=== PATIENT | female | born 1960 | race Caucasian/White ===

== ENCOUNTER 2020-10-26 11:20 | Emergency (ER) | payer OTHER, SELFPAY ==
[2020-10-26] VITALS (13 sets, daily range): BP systolic 109–136; BP diastolic 59–104; PULSE 66–91; RESP 15–25; TEMP 36.5; O2SAT 94–100; BMI 34.0
[2020-10-26 11:47] LABS: Add Manual Diff / Slide Review NO; Basophils Absolute Auto 0 /uL (0-100); Basophils Percent Auto 0.7 % (0-2); Eosinophils Absolute Auto 200 /uL (0-450); Eosinophils Percent Auto 3.1 % (2-4); Hematocrit 42.6 % (36-46); Hemoglobin 14.1 g/dL (12.0-16.0); Lymphocytes Absolute Auto 1000 /uL (1100-4500); Mean Corpuscular HGB Conc 33.1 % (30-36); Mean Corpuscular Hemoglobin 29.4 PG (26-34); Mean Corpuscular Volume 88.9 fL (80-100); Monocytes Absolute Auto 400 /uL (0-900); Monocytes Percent Auto 7.3 % (3-14); Neutrophils Absolute Auto 4500 /uL (1500-7000); Neutrophils Percent Auto 72.9 % (50-75); Platelet Count 192 X10^3/uL (150-400); Red Blood Cell Count 4.79 X10^6/uL (4.0-5.2); White Blood Cell Count 6.1 X10^3/uL (4.5-11.0)
[2020-10-26 11:54] LABS: INR 1.1 (0.9-1.3); Prothrombin Time 11.8 SECONDS (10.1-12.7)
[2020-10-26 11:56] LABS: PTT Partial Thromboplastin Tim 29 SECONDS (26.4-36.2)
[2020-10-26 11:57] LABS: Alanine Aminotransferase 22 IU/L (<35); Albumin 4.2 g/dL (3.5-5.0); Albumin Globulin Ratio 1.5 (1.0-2.8); Alkaline Phosphatase 106 U/L (38-126); Aspartate Aminotransferase 36 IU/L (14-36); BUN Creatinine Ratio 40.4 (6-22); Bilirubin Total 0.5 mg/dL (0.2-1.3); Blood Urea Nitrogen 21 mg/dL (7-17); Calcium 9.3 mg/dL (8.4-10.2); Carbon Dioxide 30 mmol/L (22-32); Chloride 101 mmol/L (98-107); Estimated Glomerular Filt Rate > 60.0 mL/min (>60); Globulin 2.8 g/dL (1.7-4.1); Glucose 133 mg/dL (80-110); HEMOLYSIS < 15 (0-50); Lipase 120 U/L (23-300); Potassium 3.6 mmol/L (3.4-5.1); Sodium 138 mmol/L (137-145)
[2020-10-26 12:07] LABS: COVID19 -Nasal RAPID Negative (Negative)
--- NOTE | 2020-10-26 12:12 | ED.GENADULT ---
HPI - General Adult General Chief complaint: Abdominal Pain Stated complaint: Syncope/Abd pain Time Seen by Provider: 10/26/20 11:24 Source: patient Mode of arrival: EMS Limitations: no limitations History of Present Illness HPI narrative: 60-year-old female who was brought to the emergency department by EMS after having an episode this morning. States that she went to bed last night at her normal state health and feeling very well. States she woke up this morning very well rested. Walked downstairs had a local bed and breakfast to he with some friends. He was during breakfast that she stated that she started to not feel very well. She started to get very hot. States the next thing that she remembers she was on the ground with someone over top of her asking how she was doing and another individual in the phone with EMS. She did have a episode of urinary incontinence during this time. She also had multiple episodes of vomiting EN route here to the emergency department. At the time my evaluation she reports she was feeling better. Prior to passing out she denied any headache. No chest pain. No shortness of breath. No rapid heart rate. Do not feel nauseous prior to the event. She is on ?HCTZ ?for a eustachian tube dysfunction issue although she was not feeling any signs of vertigo prior to the event today. Related Data Allergies Allergy/AdvReac Type Severity Reaction Status Date / Time ciprofloxacin Allergy Verified 10/26/20 12:13 clarithromycin [From Biaxin] Allergy Verified 10/26/20 12:13 clindamycin Allergy Verified 10/26/20 12:13 doxycycline Allergy Verified 10/26/20 12:13 Iodinated Contrast Media Allergy Verified 10/26/20 12:13 Penicillins Allergy Verified 10/26/20 12:13 Sulfa (Sulfonamide Allergy Verified 10/26/20 12:13 Antibiotics) Review of Systems Constitutional Constitutional: Denies fever(s) and Denies headache(s) Eyes Eyes: Reports system reviewed and no additional complaints, except as documented ENT Ears, Nose, Mouth, and Throat: Reports system reviewed and no additional complaints, except as documented, Reports vertigo, Reports dizziness and Denies headache(s) Cardiovascular Cardiovascular: Reports system reviewed and no additional complaints, except as documented and Reports syncope Respiratory Respiratory: Reports system reviewed and no additional complaints, except as documented Gastrointestinal Gastrointestinal: Reports vomiting Genitourinary Genitourinary: Reports system reviewed and no additional complaints, except as documented Musculoskeletal Musculoskeletal: Reports system reviewed and no additional complaints, except as documented Integumentary/Breasts Skin/Breast: Reports system reviewed and no additional complaints, except as documented Neurologic Neurologic: Reports vertigo, Reports dizziness, Reports syncope and Denies headache(s) Hematologic/Lymphatic On Anticoagulants: No Allergic/Immunologic Allergic/Immunologic: Reports system reviewed and no additional complaints, except as documented Patient History Medical History Eustachian tube dysfunction Social History Smoking Status: Never smoker Smoking Status: Never smoker Substance Use Type: does not use Exam Initial Vital Signs Initial Vital Signs: Vital Signs Temperature 97.7 F 10/26/20 11:28 Pulse Rate 69 10/26/20 11:28 Respiratory Rate 22 10/26/20 11:28 Blood Pressure 136/104 H 10/26/20 11:28 Pulse Oximetry 99 10/26/20 11:28 Const General: cooperative and comfortable Limitations: mental status not altered HENMI Head: normal to inspection and normocephalic Resp Effort & Inspection: normal respiratory effort Auscultation: clear to auscultation bilaterally Cardio Rate: regular rate Rhythm: regular rhythm Pulses: radial pulses present GI Inspection: non-distended Palpation: soft, No firm and No tender Skin Lesions: no lesions Rashes: no rashes Other: Somewhat diaphoretic Neuro General: patient alert, patient awake and patient oriented x3 Cognition: normal cognition Speech: speech normal Extrem General: normal to inspection and capillary refill normal Psych Appearance: grossly normal and well kempt Scores GCS [place] coma scale eye opening: Spontaneous [place] coma scale verbal response: Orientated Jayant coma scale motor response: Obey commands Jayant coma scale total score: 15 Course Orders Ordered: ED Orders 10/26/20 11:37 Complete Blood Count AUTO DIFF Stat Comprehensive Metabolic Panel Stat Lactate (Lactic Acid) Stat Lipase Stat Partial Thromboplastin Time Stat Prothrombin Time INR Stat 10/26/20 11:45 COVID19 -Nasal swab/Pre-Proc Stat 10/26/20 12:37 Urinalysis and Microscopic Stat 10/26/20 13:08 CT angio abdomen pelvis Stat Discontinued Medications Diphenhydramine HCl (Diphenhydramine 50 Mg/Ml Vial) 25 mg IV NOW ONE Stop: 10/26/20 13:07 Last Admin: 10/26/20 13:25 Dose: 25 mg Documented by: ÓSCAR Vital Signs Vital signs: Vital Signs - 8 hr 10/26/20 11:28 10/26/20 11:56 10/26/20 12:00 Temperature 97.7 F Pulse Rate 69 83 76 Respiratory Rate 22 25 H 23 Blood Pressure 136/104 H Pulse Oximetry 99 100 100 10/26/20 12:01 10/26/20 12:54 10/26/20 12:58 Temperature Pulse Rate 84 76 84 Respiratory Rate 24 19 Blood Pressure 118/69 118/70 Pulse Oximetry 97 98 10/26/20 13:00 10/26/20 13:30 10/26/20 13:31 Temperature Pulse Rate 75 82 66 Respiratory Rate 15 23 18 Blood Pressure 119/71 119/59 L Pulse Oximetry 99 100 100 Medical Decision Making Lab Data Lab results reviewed: Yes I reviewed the patient's lab results. Result diagrams: 10/26/20 11:37 10/26/20 11:37 Labs: Lab Results 10/26/20 10/26/20 10/26/20 Range/Units 11:37 11:37 11:37 WBC 6.1 (4.5-11.0) X10^3/uL RBC 4.79 (4.0-5.2) X10^6/uL Hgb 14.1 (12.0-16.0) g/dL Hct 42.6 (36-46) % MCV 88.9 (80-100) fL MCH 29.4 (26-34) PG MCHC 33.1 (30-36) % RDW 13.0 (11.6-14.8) % Plt Count 192 (150-400) X10^3/uL Neut % (Auto) 72.9 (50-75) % Lymph % (Auto) 16.0 L (25-40) % Pacific % (Auto) 7.3 (3-14) % Eos % (Auto) 3.1 (2-4) % Baso % (Auto) 0.7 (0-2) % Neut # (Auto) 4500 (2024-0759) /uL Lymph # (Auto) 1000 L (0689-9191) /uL Pacific # (Auto) 400 (0-900) /uL Eos # (Auto) 200 (0-450) /uL Baso # (Auto) 0 (0-100) /uL PT 11.8 (10.1-12.7) SECONDS INR 1.1 (0.9-1.3) APTT 29 (26.4-36.2) SECONDS Sodium 138 (137-145) mmol/L Potassium 3.6 (3.4-5.1) mmol/L Chloride 101 (98-107) mmol/L Carbon Dioxide 30 (22-32) mmol/L BUN 21 H (7-17) mg/dL Creatinine 0.52 (0.52-1.04) mg/dL Estimated GFR > 60.0 (>60) mL/min BUN/Creatinine Ratio 40.4 H (6-22) Glucose 133 H (80-110) mg/dL Lactate (0.7-2.1) mmol/L Calcium 9.3 (8.4-10.2) mg/dL Total Bilirubin 0.5 (0.2-1.3) mg/dL AST 36 (14-36) IU/L ALT 22 (<35) IU/L Alkaline Phosphatase 106 (38-126) U/L Total Protein 7.0 (6.3-8.2) g/dL Albumin 4.2 (3.5-5.0) g/dL Globulin 2.8 (1.7-4.1) g/dL Albumin/Globulin Ratio 1.5 (1.0-2.8) Lipase 120 (23-300) U/L Urine Color Urine Appearance Urine pH (4.5-8.0) Ur Specific [place] (1.000-1.035) Urine Protein (Negative) Urine Glucose (UA) (Negative) g/dL Urine Ketones (NEGATIVE) Urine Occult Blood (Negative) Urine Nitrate (Negative) Urine Bilirubin (NEGATIVE) Urine Urobilinogen (0.2) E.U./dL Ur Leukocyte Esterase (NEGATIVE) Urine RBC (0-5/HPF) Urine WBC (0-5/HPF) Ur Squamous Epith Cells (0-5/HPF) Amorphous Sediment Urine Bacteria (None) Urine Mucus (Negative) Ur Culture Indicated? SARS-CoV-2 (PCR) (Negative) 10/26/20 10/26/20 10/26/20 Range/Units 11:37 11:45 12:37 WBC (4.5-11.0) X10^3/uL RBC (4.0-5.2) X10^6/uL Hgb (12.0-16.0) g/dL Hct (36-46) % MCV (80-100) fL MCH (26-34) PG MCHC (30-36) % RDW (11.6-14.8) % Plt Count (150-400) X10^3/uL Neut % (Auto) (50-75) % Lymph % (Auto) (25-40) % Pacific % (Auto) (3-14) % Eos % (Auto) (2-4) % Baso % (Auto) (0-2) % Neut # (Auto) (0419-7652) /uL Lymph # (Auto) (4912-3236) /uL Pacific # (Auto) (0-900) /uL Eos # (Auto) (0-450) /uL Baso # (Auto) (0-100) /uL PT (10.1-12.7) SECONDS INR (0.9-1.3) APTT (26.4-36.2) SECONDS Sodium (137-145) mmol/L Potassium (3.4-5.1) mmol/L Chloride (98-107) mmol/L Carbon Dioxide (22-32) mmol/L BUN (7-17) mg/dL Creatinine (0.52-1.04) mg/dL Estimated GFR (>60) mL/min BUN/Creatinine Ratio (6-22) Glucose (80-110) mg/dL Lactate 1.1 (0.7-2.1) mmol/L Calcium (8.4-10.2) mg/dL Total Bilirubin (0.2-1.3) mg/dL AST (14-36) IU/L ALT (<35) IU/L Alkaline Phosphatase (38-126) U/L Total Protein (6.3-8.2) g/dL Albumin (3.5-5.0) g/dL Globulin (1.7-4.1) g/dL Albumin/Globulin Ratio (1.0-2.8) Lipase (23-300) U/L Urine Color Yellow Urine Appearance Clear Urine pH 6.0 (4.5-8.0) Ur Specific [place] 1.025 (1.000-1.035) Urine Protein Negative (Negative) Urine Glucose (UA) Negative (Negative) g/dL Urine Ketones Negative (NEGATIVE) Urine Occult Blood Negative (Negative) Urine Nitrate Negative (Negative) Urine Bilirubin Negative (NEGATIVE) Urine Urobilinogen 0.2 (0.2) E.U./dL Ur Leukocyte Esterase Negative (NEGATIVE) Urine RBC None seen (0-5/HPF) Urine WBC 0-1/hpf (0-5/HPF) Ur Squamous Epith Cells 0-1 /hpf (0-5/HPF) Amorphous Sediment 1+ Urine Bacteria None seen (None) Urine Mucus 1+ H (Negative) Ur Culture Indicated? Cult not indicated SARS-CoV-2 (PCR) Negative (Negative) Imaging Data CT scan - abdomen/pelvis: Radiologist's Impression: [address] [id number] Scan ReportSigned Patient: Annabella RodriguezMR#: [id number]: 9Acct:[id number]/Sex: 60 / FDate of Service: 10/26/20Loc: EDAccession Number: [id number] Procedure: CT angio abdomen pelvis Ordering Provider: Moiz Rose D.O. PROCEDURE: CT ANGIO ABDOMEN PELVIS INDICATIONS: Abdominal pain and syncope TECHNIQUE: After the administration of intravenous contrast, 2.5 mm thick sections acquired from the diaphragm to the symphysis. 10 mm maximum-intensity projection (MIP) reformats were then acquired. For radiation dose reduction, the following was used: automated exposure control. Patient received premedication for history of prior mild contrast reaction, which included hives. COMPARISON: None. FINDINGS: Image quality: Excellent. Aorta: No acute aortic syndrome. No dissection. Mild calcified atherosclerotic plaque. Mesenteric arteries: Celiac trunk, superior and inferior mesenteric arteries are patent. Right pelvic arteries: Patent. No aneurysm. Left pelvic arteries: Patent. No aneurysm. Extravascular soft tissues: Lung bases are clear. Small hiatal hernia. Heart size is normal. Liver is normal in size. Small benign cysts. Gallbladder is unremarkable. Biliary system is non dilated. Pancreas enhances normally. Spleen is normal in size and enhancement. No adrenal nodules. Kidneys are normal in size and enhancement, without hydronephrosis. Simple bilateral renal cysts. Largest on the right measures 5.2 cm and on the left 4.7 cm. Small left cortical hypodensity which is too small to further characterize. Non opacified bowel loops are normal in wall thickness and caliber. Diverticulosis. No diverticulitis. Normal appendix. No free fluid or air. No retroperitoneal or mesenteric adenopathy. Circumaortic left renal vein, variant. No ventral hernias. No suspicious bony lesions. Small bone islands. No vertebral body compression fractures. IMPRESSION: 1. No acute aortic syndrome. No dissection. No aneurysm. 2. No diverticulitis. Dictated by: Rudi Max M.D. on 10/26/2020 at 14:30 Approved by: Rudi Max M.D. on 10/26/2020 at 14:39 ECG Data Attestation: I personally reviewed and interpreted this ECG as follows: Prior ECG tracings: not available for review Interpretation: Sinus bradycardia Ventricular rate of 57 QRS 84 milliseconds QTC [address] T wave changes MDM Narrative Medical decision making narrative: 1310 Patient states she is feeling much better. She does report that short time after the event she was having abdominal discomfort. Here in the emergency department she did have a small bowel movement but was very constipated. She also had some bright red blood. She denies any other change in her bowel habits. No vomiting any blood. I do have some concern about ischemic bowel given the fact that she passed out another blood in her stool. She has had a CT scan with contrast in the past but afterwards had a few ?hives ?on her abdomen and she was told that she was allergic to it. She has never had a CT scan with premedication since then. We did discuss the risks and benefits of the diagnosis of ischemic bowel. I did inform her that this is unlikely however a CT scan with contrast would be the only way to further evaluate this. Did discuss potentially premedicating her on the risks and benefits of this as well. She expressed understanding. The plan will be is to premedicate her with Benadryl. She does not want steroids she has had issues with steroids in the past causing her to be ?crazy ?. After discussion we will premedicate with Benadryl. And treat her appropriately if any adverse reaction happens. She expressed understanding and agreement with this. Patient had no reactions to the IV contrast. The CT scan did not show any signs of ischemic bowel nor other intra-abdominal surgical issue. Unsure the exact etiology of the syncope. I have low suspicion that her syncope was a seizure. She did not have a postictal state. Low suspicion for CVA. Low suspicion for pulmonary embolism. Low suspicion for ischemic bowel or acute GI bleed. I discussed all this with her. Will discharge home with instructions to follow-up with her primary provider. She expressed understanding and agreement. Discharge Plan Departure Patient Disposition: Home Clinical Impression: Syncope Instructions: DI for Syncope in Adults (Fainting) Activity Restrictions/Additional Instructions: I do recommend that you contact your primary provider for a follow-up and to discuss the indications for a Holter monitor. Return to the emergency department for any new or worsening symptoms.
[2020-10-26 13:01] LABS: Bacteria Urine None Seen; RBC Urine None Seen (0-5/HPF)
[2020-10-26 13:04] LABS: Appearance Urine UA CLEAR; Bilirubin Urine UA NEGATIVE (NEGATIVE); Color Urine UA YELLOW; Glucose Urine UA NEGATIVE (Negative); Ketones Urine UA NEGATIVE (NEGATIVE); Leukocyte Esterase Urine UA NEGATIVE (NEGATIVE); Nitrite Urine UA NEGATIVE (Negative); Occult Blood Urine UA NEGATIVE (Negative); Protein Urine UA NEGATIVE (Negative); Specific Gravity Urine UA 1.025 (1.000-1.035); Urobilinogen Urine UA 0.2 E.U./dL (0.2)
--- NOTE | 2020-10-26 13:08 | DI.CT.S_ITS ---
PROCEDURE: CT ANGIO ABDOMEN PELVIS INDICATIONS: Abdominal pain and syncope TECHNIQUE: After the administration of intravenous contrast, 2.5 mm thick sections acquired from the diaphragm to the symphysis. 10 mm maximum-intensity projection (MIP) reformats were then acquired. For radiation dose reduction, the following was used: automated exposure control. Patient received premedication for history of prior mild contrast reaction, which included hives. COMPARISON: None. FINDINGS: Image quality: Excellent. Aorta: No acute aortic syndrome. No dissection. Mild calcified atherosclerotic plaque. Mesenteric arteries: Celiac trunk, superior and inferior mesenteric arteries are patent. Right pelvic arteries: Patent. No aneurysm. Left pelvic arteries: Patent. No aneurysm. Extravascular soft tissues: Lung bases are clear. Small hiatal hernia. Heart size is normal. Liver is normal in size. Small benign cysts. Gallbladder is unremarkable. Biliary system is non dilated. Pancreas enhances normally. Spleen is normal in size and enhancement. No adrenal nodules. Kidneys are normal in size and enhancement, without hydronephrosis. Simple bilateral renal cysts. Largest on the right measures 5.2 cm and on the left 4.7 cm. Small left cortical hypodensity which is too small to further characterize. Non opacified bowel loops are normal in wall thickness and caliber. Diverticulosis. No diverticulitis. Normal appendix. No free fluid or air. No retroperitoneal or mesenteric adenopathy. Circumaortic left renal vein, variant. No ventral hernias. No suspicious bony lesions. Small bone islands. No vertebral body compression fractures. IMPRESSION: 1. No acute aortic syndrome. No dissection. No aneurysm. 2. No diverticulitis. Dictated by: Rudi Max M.D. on 10/26/2020 at 14:30 Approved by: Rudi Max M.D. on 10/26/2020 at 14:39
[2020-10-26 13:18] LABS: Squamous Epithelial Cell Urine 0-1 /HPF (0-5/HPF); WBC Urine 0-1/HPF (0-5/HPF)
[2020-10-26 13:19] LABS: Amorphous Sediment Urine 1+; Culture Indicated Urine Cult Not Indicated; Mucus Urine 1+ (Negative)
[2020-10-26] MEDS: diphenhydrAMINE 50 MG/ML VIAL 25 MG IV (13:25)
[2020-10-26 13:26] LABS: Lactate (Lactic Acid) 1.1 mmol/L (0.7-2.1)
== END 2020-10-26 15:42 | disposition home or self-care (01) ==
PROVIDERS: Emergency Provider Emergency Medicine
DX: R55 Syncope and collapse (principal); R42 Dizziness and giddiness; R10.9 Unspecified abdominal pain; K59.00 Constipation, unspecified; Z20.822 Contact with and (suspected) exposure to COVID-19
CPT/HCPCS: 36415; 74174; 80053; 81001; 83605; 83690; 85025; 85610; 85730; 87635; 93005; 96374; 99284; C9803; J1200; Q9967